=== PATIENT | female | born 1940 | race Two or more races ===

== ENCOUNTER 2020-10-20 09:26 | Inpatient (IN) | payer MEDICARE, OTHER ==
[~2020-10-20] VITALS: Ht 167.6 cm; Wt 56.7 kg
[2020-10-20 10:48] LABS: Urine Amorphous Crystal FEW /hpf (None Seen); Urine Bacteria NONE SEEN /hpf (None Seen); Urine Blood Negative /uL (Negative); Urine Mucus FEW (None Seen); Urine Specific Gravity 1.012 (1.001-1.035); Urine WBC <1 /hpf (0 - 5)
[2020-10-20 11:26] LABS: Basophils # (auto) 0 10 ^3/uL (0-0.2); Basophils % (auto) 0.4 % (0.0-2.0); Eosinophils # (auto) 0 10 ^3/uL (0-0.8); Eosinophils % (auto) 0.8 % (0.0-7.0); Hematocrit 39.4 % (36.0-46.0); Hemoglobin 13.5 g/dL (12.2-16.2); Lymphocytes # (auto) 0.6 10 ^3/uL (0.4-5.4); Lymphocytes % (auto) 12.6 % (10.0-50.0); Mean Corpuscular Hemoglobin 33.1 pg (28.0-32.0); Mean Corpuscular Hgb Conc. 34.3 g/dL (32.0-36.0); Mean Corpuscular Volume 96.6 fL (80.0-100.0); Monocytes # (auto) 0.3 10 ^3/uL (0-1.3); Monocytes % (auto) 7.6 % (0.0-12.0); Neutrophils # (auto) 3.6 10 ^3/uL (1.6-8.6); Neutrophils % (auto) 78.6 % (37.0-80.0); Nucleated Red Blood Cells % 0.1 %; Platelet Count (auto) 137 10^3/uL (140-450); Red Blood Cells 4.08 10^6/uL (4.0-5.20); Red Cell Distribution Width 13.3 % (11.8-14.3); White Blood Cell 4.6 10^3/uL (4.4-10.8)
[2020-10-20 11:42] LABS: Chloride 103 mmol/L (98-107); Sodium 132 mmol/L (136-145)
[2020-10-20 11:50] LABS: Alanine Aminotransferase 20 U/L (13-56); Albumin 3.8 g/dL (3.4-5.0); Alkaline Phosphatase 101 U/L (45-117); Anion Gap 5 (5-15); Aspartate Aminotransferase 21 U/L (15-37); BUN/Creatinine Ratio 27.9; Blood Urea Nitrogen 12 mg/dL (7-18); Calcium 9.3 mg/dL (8.5-10.1); Carbon Dioxide 24 mmol/L (21-32); GFR African American 183 mL/min; GFR Non-African American 151 mL/min; Glucose 104 mg/dL (74-106); Total Protein 7.7 g/dL (6.4-8.2)
[2020-10-20 11:54] LABS: INR 1.24 (0.9-1.15); Partial Thromboplastin Time 33.4 sec (23.0-31.2)
[2020-10-20] MEDS ORDERED: NITROGLYCERIN 0.4 MG SL TAB SL PRN (14:30)
[2020-10-20] MEDS ORDERED: MORPHINE SULF INJ 2 MG/ML SYRINGE 1ML IV PRN ×2 (14:30)
[2020-10-20] MEDS ORDERED: ONDANSETRON HCL 4 MG/2 ML VIAL IV PRN (14:30)
[2020-10-20] MEDS ORDERED: ACETAMINOPHEN 500 MG TAB PO PRN (14:30)
[2020-10-20] MEDS ORDERED: HYDROcodone-ACET 5/325MG TAB PO PRN (14:30)
[2020-10-20] MEDS ORDERED: hydrALAZINE HCL 20 MG/ML VL IV PRN (15:00)
[2020-10-20] MEDS ORDERED: LORazepam 2MG/ML-1ML VIAL IV PRN (16:30)
[2020-10-20 19:15] LABS: Cholesterol 211 mg/dL (< 200); Triglycerides 74 mg/dL (< 150)
[2020-10-20 19:18] LABS: HDL Cholesterol 80 mg/dL (40-59); LDL Cholesterol 110 mg/dL (< 100)
[2020-10-20] MEDS: APIXABAN 5 MG TAB PO SCH (22:34)
[2020-10-20] MEDS: ATORVASTATIN 20 MG TAB PO SCH (22:35)
[2020-10-20] MEDS ORDERED: GABAPENTIN 100 MG CAP PO ONE (23:30)
[2020-10-21] VITALS (7 sets, daily range): BP systolic 115–150; BP diastolic 61–77
[2020-10-21] MEDS ORDERED: AMLO-489 PO (04:53)
[2020-10-21] MEDS ORDERED: GABA100C PO (04:53)
[2020-10-21] MEDS ORDERED: CYCL0.05 EACHEYE (04:53)
[2020-10-21] MEDS ORDERED: FLUO0.1S2 OP (04:53)
[2020-10-21] MEDS ORDERED: APIX5TAB PO (04:53)
[2020-10-21] MEDS ORDERED: BRIM0.159 OP (04:53)
[2020-10-21] MEDS ORDERED: LISI-646 PO (04:53)
[2020-10-21] MEDS ORDERED: TIMO0.5S28 EACHEYE (04:53)
[2020-10-21] MEDS: amLODIPine BESYLATE 5 MG TAB PO SCH (09:14)
[2020-10-21] MEDS: FAMOTIDINE 20 MG TAB PO SCH (09:15)
[2020-10-21] MEDS: APIXABAN 5 MG TAB PO SCH ×2 (09:15→21:03)
[2020-10-21] MEDS: ATORVASTATIN 20 MG TAB PO SCH (21:02)
[2020-10-21] MEDS ORDERED: GABAPENTIN 100 MG CAP PO SCH (22:00)
[2020-10-21] MEDS: SODIUM CHLORIDE 0.9% 1,000 ML IV SCH (22:06)
[2020-10-22] MEDS: SODIUM CHLORIDE 0.9% 1,000 ML IV SCH ×2 (05:08→13:15)
[2020-10-22 05:16] VITALS: BP 162/75
[2020-10-22 06:38] VITALS: BP 135/53
[2020-10-22 08:30] VITALS: BP 138/59
[2020-10-22] MEDS: APIXABAN 5 MG TAB PO SCH (09:00)
[2020-10-22] MEDS: FAMOTIDINE 20 MG TAB PO SCH (09:00)
[2020-10-22] MEDS: amLODIPine BESYLATE 5 MG TAB PO SCH (09:01)
[2020-10-22] MEDS ORDERED: AZITHROMYCIN 250 MG TAB PO SCH (10:00)
[2020-10-22] MEDS ORDERED: IOPAMIDOL 76 % (ISOVUE-370) 100ML BTL IV ONE (10:24)
[2020-10-22 12:30] VITALS: BP 128/65
[2020-10-22 16:47] VITALS: BP 123/66
== END 2020-10-22 17:30 | disposition home or self-care (01) | DRG 149 ==
LOC: ER 09:26 → TELE 14:19 → TELE-EAST 10-21 02:56
PROVIDERS: ADMIT Nurse Practitioner Acute Care; ATTEND Internal Medicine
DX: R42 Dizziness and giddiness (principal); U07.1 COVID-19; E87.1 Hypo-osmolality and hyponatremia; R55 Syncope and collapse; I73.9 Peripheral vascular disease, unspecified; I48.0 Paroxysmal atrial fibrillation; H57.02 Anisocoria; F41.9 Anxiety disorder, unspecified; G62.9 Polyneuropathy, unspecified; I11.0 Hypertensive heart disease with heart failure; I50.9 Heart failure, unspecified; Z86.73 Personal history of transient ischemic attack (TIA), and cerebral infarction without residual deficits; Z90.710 Acquired absence of both cervix and uterus
CPT/HCPCS: 36415; 70450; 70498; 71045; 71250; 80053; 80061; 81001; 84484; 85025; 85610; 85730; 87426; 93005; 93306; 93886; 97163; G0378

== ENCOUNTER 2024-06-26 08:26 | Inpatient (IN) | payer MEDICARE, OTHER ==
[~2024-06-26] VITALS: Ht 165.1 cm; Wt 61.5 kg
[~2024-06-26 08:26] MED LIST: AMLO1TAB22 PO; APIX5TAB PO; BRIM0.159 OP; CYCL0.05 EACHEYE; FLUO0.1S2 OP; GABA100C PO; LISI20TA56 PO; TIMO0.5S28 EACHEYE
[2024-06-26 08:57] LABS: Basophils # (auto) 0 10 ^3/uL (0-0.2); Basophils % (auto) 0.5 % (0.0-2.0); Eosinophils # (auto) 0 10 ^3/uL (0-0.8); Eosinophils % (auto) 0.1 % (0.0-7.0); Hematocrit 32.9 % (36.0-46.0); Hemoglobin 10.8 g/dL (12.2-16.2); Lymphocytes # (auto) 0.4 10 ^3/uL (0.4-5.4); Lymphocytes % (auto) 6.1 % (10.0-50.0); Mean Corpuscular Hemoglobin 30.2 pg (28.0-32.0); Mean Corpuscular Hgb Conc. 32.9 g/dL (32.0-36.0); Mean Corpuscular Volume 91.8 fL (80.0-100.0); Monocytes # (auto) 0.9 10 ^3/uL (0-1.3); Monocytes % (auto) 14.4 % (0.0-12.0); Neutrophils # (auto) 5.1 10 ^3/uL (1.6-8.6); Neutrophils % (auto) 78.9 % (37.0-80.0); Platelet Count (auto) 302 10^3/uL (140-450); Red Blood Cells 3.59 10^6/uL (4.0-5.20); Red Cell Distribution Width 13.2 % (11.8-14.3); White Blood Cell 6.4 10^3/uL (4.4-10.8)
--- NOTE | 2024-06-26 08:57 | ED.PDOC ---
Back pain HPI HPI Comments 83Y F with PMHx HTN, HLD, TIA, and hysterectomy presents to ED for chief complaint bilateral hip pain and bilateral shoulder pain. Pt is currently being f/u by Dr. Berumen who told her she is not a candidate for surgery. Pt states pain is worsening and she can barely walk. Pt is currently taking Gabapentin for neuropathy. Pt denies h/o DM. No known allergies. Chief Complaint: Lower Extremity Time Seen by MD: 08:47 Reviewed Notes: Medications, Allergies Allergies: Coded Allergies: NO KNOWN ALLERGIES (Unverified , 10/20/20) Home Meds Reported Medications Brimonidine Tartrate (Brimonidine Tartrate) 0.15 % Katina, 1 DROP OP BID, DROP 10/21/20 Fluorometholone (Fml Liquifilm) 0.1 % Marilin, 0.1 % OP PRN, ML 10/21/20 Timolol Maleate (Timolol Maleate Ophthalmi) 0.5 % Katina, 1 DROP EACHEYE BID, #5 ML 5 Refills 10/21/20 Cyclosporine (Ophth) (Restasis) 0.05 % Emu, 1 DROP EACHEYE BID, #60 VIAL 3 Refills 10/21/20 Gabapentin (Neurontin) 100 Mg Cap, 200 MG PO DAILY, CAP 10/21/20 Apixaban Base (ELIQUIS) 5 Mg Tab, 5 MG PO BID, TAB 10/21/20 Amlodipine Besylate (Amlodipine Besylate) 5 Mg Tab, 5 MG PO DAILY for 30 Days, MG 10/21/20 Lisinopril (Lisinopril) 20 Mg Tab, 20 MG PO BID for 30 Days, MG 10/21/20 Information Source: Patient Mode of Arrival: Wheelchair Timing: Weeks Duration: Since onset Severity: Mild Quality: Sharp Onset: Other Circumstance: Other History of: Arthritis Modifying Factors: Nothing Associated signs and symptoms: None Past Medical History PAST MEDICAL HISTORY: HTN, TIA Surgical History: Hysterectomy SOCIAL MEDIA DESIGNER History: Unobtainable Family History Family History: Unobtainable Social History Smoker: Non-Smoker Alcohol: Denies ETOH Use Drugs: Denies Drug Use Lives In: Home Constitutional: denies: chills, diaphoresis, fatigue, fever, malaise, sweats, weakness, others EENTM: denies: blurred vision, double vision, ear bleeding, ear discharge, ear drainage, ear pain, ear ringing, eye pain, eye redness, hearing loss, mouth pain, mouth swelling, nasal discharge, nose bleeding, nose congestion, nose pain, photophobia, tearing, throat pain, throat swelling, voice changes, others Respiratory: denies: cough, hemoptysis, orthopnea, SOB at rest, shortness of breath, SOB with excertion, stridor, wheezing, others Cardiovascular: denies: chest pain, dizzy spells, diaphoresis, Dyspnea on exertion, edema, irregular heart beat, left arm pain, lightheadedness, palpitations, PND, syncope, others Gastrointestinal: denies: abdomen distended, abdominal pain, blood streaked bowels, constipated, diarrhea, dysphagia, difficulty swallowing, hematemesis, melena, nausea, poor appetite, poor fluid intake, rectal bleeding, rectal pain, vomiting, others Genitourinary: denies: abnormal vagina bleeding, burning, dyspareunia, dysuria, flank pain, frequency, hematuria, incontinence, pain, , vagina discharge, urgency, others Neurological: denies: dizziness, fainting, headache, left sided numbness, left sided weakness, numbness, paresthesia, pre-existing deficit, right sided numbness, right sided weakness, seizure, speech problems, tingling, tremors, weakness, others Musculoskeletal: reports: joint pain, muscle pain; denies: back pain, gout, joint swelling, muscle stiffness, neck pain, others Integumetry: denies: bruises, change in color, change in hair/nails, dryness, laceration, lesions, lumps, rash, wounds, others Allergic/Immunocompromised: denies: Difficulty Healing, Frequent Infections, Hives, Itching, others Hematologic/Lymphatic: denies: anemia, blood clots, easy bleeding, easy bruising, swollen glands, others Endocrine: denies: excessive hunger, excessive sweating, excessive thirst, excessive urination, flushing, intolerance to cold, intolerance to heat, unexplained weight gain, unexplained weight loss, others Psychiatric: denies: anxiety, bipolar disorder, depression, hopeless, panic disorder, schizophrenia, sleepless, suicidal, others All Other Systems: Reviewed and Negative Physical Exam General Appearance: Moderate Distress, Normal HEENT: Normal ENT Inspection, Pharynx Normal, TMs Normal Neck: Full Range of Motion, Non-Tender, Normal, Normal Inspection Respiratory: Chest Non-Tender, Lungs Clear, No Accessory Muscle Use, No Respiratory Distress, Normal Breath Sounds Cardiovascular: No Edema, No JVD, No Murmur, No Gallop, Normal Peripheral Pu lses, Regular Rate/Rhythm Breast Exam: Deferred Gastrointestinal: No Organomegaly, Non Tender, No Pulsatile Mass, Normal Bowel Sounds, Soft Genitalia: Deferred Pelvic: Deferred Rectal: Deferred Extremities: Decreased range of motion (Bilateral upper lower extremity), No calf tenderness, Normal capillary refill, Non-tender, No pedal edema Musculoskeletal : Apperance: Normal Neurologic: Alert, assistant education director II-XII nml as Tested, No Motor Deficits, Normal Affect, Normal Mood, No Sensory Deficits Cerebellar Function: NOT DONE Reflexes: NOT DONE Skin: Dry, Normal Color, Warm Peripheral Pulses: 3+ Radial (R), 3+ Radial (L) Lymphatic: No Adenopathy Was a procedure done? Was a procedure done?: No Back Pain Differential Dx Differential Diagnosis: Musculoskeletal Pain, Strain X-Ray, Labs, Meds, VS Vital Signs Date Time Temp Pulse Resp B/P (MAP) Pulse Ox O2 Delivery O2 Flow Rate FiO2 06/26/24 10:06 69 19 134/53 (80) 98 06/26/24 10:05 69 19 134/53 06/26/24 09:38 78 18 148/58 06/26/24 09:36 73 16 99 Room Air* 0 21 06/26/24 09:33 98.9 78 18 148/58 (88) 99 98.9 06/26/24 09:33 78 18 99 Room Air 06/26/24 08:38 98.1 76 18 158/90 (112) 98 Lab Test 06/26/24 08:46 06/26/24 08:37 Range/Units White Blood Count 6.4 4.4-10.8 10^3/uL Red Blood Count 3.59 L 4.0-5.20 10^6/uL Hemoglobin 10.8 L 12.2-16.2 g/dL Hematocrit 32.9 L 36.0-46.0 % Mean Corpuscular Volume 91.8 80.0-100.0 fL Mean Corpuscular Hemoglobin 30.2 28.0-32.0 pg Mean Corpuscular Hemoglobin Concent 32.9 32.0-36.0 g/dL Red Cell Distribution Width 13.2 11.8-14.3 % Platelet Count 302 140-450 10^3/uL Mean Platelet Volume 6.4 L 6.9-10.8 fL Neutrophils (%) (Auto) 78.9 37.0-80.0 % Lymphocytes (%) (Auto) 6.1 L 10.0-50.0 % Monocytes (%) (Auto) 14.4 H 0.0-12.0 % Eosinophils (%) (Auto) 0.1 0.0-7.0 % Basophils (%) (Auto) 0.5 0.0-2.0 % Neutrophils # (Auto) 5.1 1.6-8.6 10 ^3/uL Lymphocytes # (Auto) 0.4 0.4-5.4 10 ^3/uL Monocytes # (Auto) 0.9 0-1.3 10 ^3/uL Eosinophils # (Auto) 0 0-0.8 10 ^3/uL Basophils # (Auto) 0 0-0.2 10 ^3/uL Nucleated Red Blood Cells 0.0 % Sodium Level 130 L 136-145 mmol/L Potassium Level 4.5 3.5-5.1 mmol/L Chloride Level 100 98-107 mmol/L Carbon Dioxide Level 26 20-31 mmol/L Anion Gap 4 L 5-15 Blood Urea Nitrogen 14 9-23 mg/dL Creatinine 0.59 0.550-1.02 mg/dL Glomerular Filtration Rate Calc 90 >90 mL/min BUN/Creatinine Ratio 23.7 H 10.0-20.0 Serum Glucose 122 H 74-106 mg/dL Calcium Level 9.2 8.7-10.4 mg/dL Urine Color Light-yellow Yellow Urine Clarity Turbid H Clear Urine pH 7.0 5.0-9.0 Urine Specific [place] 1.012 1.001-1.035 Urine Protein Negative Negative Urine Ketones Negative Negative Urine Blood Negative Negative /uL Urine Nitrite Negative Negative Urine Bilirubin Negative Negative Urine Urobilinogen Normal Negative mg/dL Urine Leukocyte Esterase Negative Negative /uL Urine RBC 2 0 - 4 /hpf Urine WBC 1 0 - 5 /hpf Urine Squamous Epithelial Cells Mod <5 /hpf Urine Bacteria None seen None Seen /hpf Urine Glucose Normal Normal mg/dL Current Medications Medications (Trade) Dose Ordered Sig/Melony Route Start Time Stop Time Status Last Admin Morphine Sulfate 4 mg ONCE ONCE IV 06/26/24 09:15 06/26/24 09:16 DC 06/26/24 09:38 Ondansetron HCl (Zofran) 4 mg ONCE ONCE IV 06/26/24 09:15 06/26/24 09:16 DC 06/26/24 09:37 Patient alert. Came in because she has been unable to ambulate. She does have a history of possible inflammation of the hips. Vitals stable. Osteoarthritis involving the hips shoulder. 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 She uses a cane for assistance. WBC within normal limits. Blood pressure elevated. Was given clonidine. Possibly will need MRI of the joints. Reviewed her previous visit. Explained to the patient. Continue cardiac monitoring. Time of 1ST Reevaluation: 09:17 Reevaluation 1ST: Unchanged Patient Education/Counseling: Diagnosis, Treatment Family Education/Counseling: No Family Present Departure 1 Departure Time of Disposition: 09:12 Impression: Primary Impression: Hip osteoarthritis Qualified Codes: M16.0 - Bilateral primary osteoarthritis of hip Additional Impressions: Hypertensive urgency Fibromyalgia Disposition: ADMITTED INPATIENT Admit to: Med Surg Condition: Guarded Critical Care Note Critical Care Time?: Yes (45 min-critical care time only) Stability Stability form required: No Heart Score Heart Score: Heart Score Response (Comments) Value History Slightly Suspicious 0 EKG Normal 0 Age >65 2 Risk Factors 1 or 2 risk factors 1 Troponin N/A 0 Total 3 I personally scribed for ALEXIS ELLIOTT MD ([email or web address]) on 06/26/24 at 08:57. Electronically submitted by Amelia Boswell ([email or web address]). ALEXIS ELLIOTT MD Jun 26, 2024 08:57
[2024-06-26 08:59] LABS: Urine Bacteria None Seen /hpf (None Seen)
[2024-06-26 09:09] LABS: Urine Blood Negative /uL (Negative); Urine Clarity Turbid (Clear); Urine Color Light-Yellow (Yellow); Urine Protein, UAD Negative (Negative); Urine Specific Gravity 1.012 (1.001-1.035); Urine Urobilinogen Normal (Negative); Urine WBC 1 /hpf (0 - 5)
[2024-06-26 09:26] LABS: Chloride 100 mmol/L (98-107); Potassium 4.5 mmol/L (3.5-5.1); Sodium 130 mmol/L (136-145)
[2024-06-26 09:27] LABS: Anion Gap 4 (5-15); Calcium 9.2 mg/dL (8.7-10.4); Carbon Dioxide 26 mmol/L (20-31)
[2024-06-26 09:32] LABS: BUN/Creatinine Ratio 23.7 (10.0-20.0); Blood Urea Nitrogen 14 mg/dL (9-23); Glucose 122 mg/dL (74-106)
[2024-06-26 09:36] VITALS: PULSE 73; RESP 16; O2SAT 99
[2024-06-26] MEDS: ONDANSETRON HCL 4 MG/2 ML VIAL IV ONE (09:37)
[2024-06-26] MEDS: MORPHINE SULFATE 4 MG/ML SYR/VIAL IV ONE (09:38)
--- NOTE | 2024-06-26 12:42 | DVHHP2 ---
History of Present Illness Reason for Visit: Hypertensive urgency History of Present Illness The patient is a 83-year-old female with past medical history of hyperlipidemia, hypertension, and TIA who presented to [facility] ED with complaint of bilateral hip pain. Patient reports symptoms progressively get worse with localized bilateral hip pain, rating 9/10 numeric scale, getting worse today that prompted this visit. Patient was seen and evaluated in the ED, laboratory data shows WBC 6.4, hemoglobin 10.8, hematocrit 32.9, platelets 302, sodium 130, potassium 4.5, BUN 14, creatinine 0.59, glucose 122, blood pressure 158/90, heart rate 78, temperature 98.9 F, O2 saturation 98% on room air. CT of the right hip revealing moderate degenerative arthrosis of the right hip. Patient was given IV morphine sulfate 4 mg x 1, please see medication orders section in the computer. On my assessment, patient denied chest pain, no headache, no dizziness, no diaphoresis, no shortness of breath, no nausea, no vomiting, no fever, no chills. Patient was admitted for further evaluation and medical management. Past Medical History HTN, TIA, HLD Past Surgical History Hysterectomy Family History Reviewed, noncontributory to the management of this case. Past Social History The patient lives at home, denies smoking, alcohol or illicit drugs abuse. Review of Systems Constitutional: No: Fever, Chills, Sweats, Weakness, Malaise, Other Eyes: No: Pain, Vision change, Conjunctivae inflammation, Eyelid inflammation, Other, Redness ENT: No: Ear pain, Ear discharge, Nose pain, Nose discharge, Nose congestion, Mouth pain, Mouth swelling, Throat pain, Throat swelling, Other Respiratory: No: Cough, Dry, Shortness of breath, SOB with excertion, Wheezing, Hemoptysis, Pleuritic Pain, Sputum, Wheezing, Other Cardiovascular: No: Chest Pain, Palpitations, Orthopnea, Paroxysmal Noc. Dyspnea, Edema, Lt Headedness, Other Gastrointestinal: No: Nausea, Vomiting, Abdominal Pain, Diarrhea, Constipation, Melena, Hematochezia, Other Genitourinary: No Dysuria, No Frequency, No Incontinence, No Hematuria, No Retention, No Other Musculoskeletal: other (joint pain, muscle pain.); No: neck pain, shoulder pain, arm pain, back pain, hand pain, leg pain, foot pain Skin: No: Rash, Lesions, Jaundice, Bruising, Other Neurological: No: Weakness, Numbness, Incoordination, Change in speech, Confusion, Seizures, Other Allergies: Coded Allergies: NO KNOWN ALLERGIES (Unverified , 10/20/20) Medications Current Medications Medications Dose Ordered Sig/Melony Route Start Time Stop Time Status Last Admin Dose Admin Gabapentin 200 mg DAILY PO 06/27/24 10:00 UNV Exam Vital Signs Vital Signs Date Time Temp Pulse Resp B/P (MAP) Pulse Ox O2 Delivery O2 Flow Rate FiO2 06/26/24 10:06 69 19 134/53 (80) 98 06/26/24 09:36 Room Air* 0 21 06/26/24 09:33 98.9 98.9 General Appearance: Alert, Oriented X3, Cooperative, No acute distress HEENT: Atraumatic, PERRLA, EOMI, Mucous membr. moist/pink Respiratory: Clear to auscultation, Normal air movement Cardiovascular: Regular rate, Normal S1, Normal S2, No murmurs Abdominal: Normal bowel sounds, Soft, No tenderness, No hepatospenomegaly, No m asses Extremities: No clubbing, No cyanosis, No edema, Normal pulses, Other (Bilateral hip tenderness) Skin: No rashes, No breakdown, No significant lesion Neuro: Normal speech, Normal tone, Sensation intact, Cranial nerves 3-12 NL, Reflexes 2+, Other (Unsteady gait) Psych/Mental Status: Mental status NL, Mood NL Labs/Xrays Labs Test 06/26/24 08:46 06/26/24 08:37 Range/Units White Blood Count 6.4 4.4-10.8 10^3/uL Red Blood Count 3.59 L 4.0-5.20 10^6/uL Hemoglobin 10.8 L 12.2-16.2 g/dL Hematocrit 32.9 L 36.0-46.0 % Mean Corpuscular Volume 91.8 80.0-100.0 fL Mean Corpuscular Hemoglobin 30.2 28.0-32.0 pg Mean Corpuscular Hemoglobin Concent 32.9 32.0-36.0 g/dL Red Cell Distribution Width 13.2 11.8-14.3 % Platelet Count 302 140-450 10^3/uL Mean Platelet Volume 6.4 L 6.9-10.8 fL Neutrophils (%) (Auto) 78.9 37.0-80.0 % Lymphocytes (%) (Auto) 6.1 L 10.0-50.0 % Monocytes (%) (Auto) 14.4 H 0.0-12.0 % Eosinophils (%) (Auto) 0.1 0.0-7.0 % Basophils (%) (Auto) 0.5 0.0-2.0 % Neutrophils # (Auto) 5.1 1.6-8.6 10 ^3/uL Lymphocytes # (Auto) 0.4 0.4-5.4 10 ^3/uL Monocytes # (Auto) 0.9 0-1.3 10 ^3/uL Eosinophils # (Auto) 0 0-0.8 10 ^3/uL Basophils # (Auto) 0 0-0.2 10 ^3/uL Nucleated Red Blood Cells 0.0 % Sodium Level 130 L 136-145 mmol/L Potassium Level 4.5 3.5-5.1 mmol/L Chloride Level 100 98-107 mmol/L Carbon Dioxide Level 26 20-31 mmol/L Anion Gap 4 L 5-15 Blood Urea Nitrogen 14 9-23 mg/dL Creatinine 0.59 0.550-1.02 mg/dL Glomerular Filtration Rate Calc 90 >90 mL/min BUN/Creatinine Ratio 23.7 H 10.0-20.0 Serum Glucose 122 H 74-106 mg/dL Calcium Level 9.2 8.7-10.4 mg/dL Urine Color Light-yellow Yellow Urine Clarity Turbid H Clear Urine pH 7.0 5.0-9.0 Urine Specific [place] 1.012 1.001-1.035 Urine Protein Negative Negative Urine Ketones Negative Negative Urine Blood Negative Negative /uL Urine Nitrite Negative Negative Urine Bilirubin Negative Negative Urine Urobilinogen Normal Negative mg/dL Urine Leukocyte Esterase Negative Negative /uL Urine RBC 2 0 - 4 /hpf Urine WBC 1 0 - 5 /hpf Urine Squamous Epithelial Cells Mod <5 /hpf Urine Bacteria None seen None Seen /hpf Urine Glucose Normal Normal mg/dL PATIENT: NIKI MORTON ACCT: [id number] UNIT: [id number] : 1940 LOC: ER ROOM / BED: / AGE / SEX: 83 / F ADM STATUS: REG ER SERVICE [id number] ORDERING PHYSICIAN: PEDRO LERNER DNP PROCEDURE(s): LHPCT - CT L HIP WITH OUT CONTRAST REASON: Severe hip pain ORDER NUMBER(s): [id number], ACCESSION NUMBER(s): [id number] CT left hip INDICATION: Severe hip pain COMPARISON: None TECHNIQUE: CT of the left hip left was performed without contrast. Images reformatted in sagittal coronal planes. Radiation Dose Information: CT Dose: CTDI volume is 11.3 mGy. Dose-length product is 309 mGy*cm FINDINGS: articular surfaces are smooth and joint spaces preserved. Femoral heads vertical morphology No free intra-articular bony fragments. No lytic or blastic lesions of bone. IMPRESSION: 1. No acute bony pathology of the left hip joint ORDERING PHYSICIAN: PEDRO LERNER DNP PROCEDURE(s): RHPCT - CT R HIP WITH OUT CONTRAST REASON: Severe hip pain ORDER NUMBER(s): [id number], ACCESSION NUMBER(s): [id number] INDICATION: Severe hip pain COMPARISON: HEAD WITHOUT CONTRAST on DOS: 10/20/20 TECHNIQUE: CT of the right hip was performed without contrast. Volume transverse images were obtained and reconstructed in multiple planes using bone and soft tissue algorithms. Radiation Dose Information: CT Dose: CTDI volume is 11 mGy. Dose-length product is 619 mGy*cm FINDINGS: The alignment is normal. No evidence of traumatic dislocation. Moderate degenerative arthrosis manifesting as joint space narrowing, subchondral sclerosis, and marginal osteophyte formation. There is no fracture, dislocation or aggressive osseous lesion. There is no joint effusion. The soft tissues are normal. IMPRESSION: 1. No acute traumatic fracture or dislocation. 2. Moderate degenerative arthrosis of the right hip. Assessment/Plan Assessment/Plan Hyponatremia Bilateral hip pain Hypertension Fibromyalgia Degenerative joint disease (DJD) of hip Plan 1. Admit to telemetry unit 2. Breathing treatment 3. Pain control management 4. Management of fluids and electrolytes 5. Consultation for hospitalist 6. Diagnostic tests hip CT 7. DVT prophylaxis-on SCDs 8. Repeat labs CBC, CMP in a.m. 9. Continue with current medical management 10. Treatment plan discussed with patient and RN. Patient verbalized understanding. Plan discussed with: Patient, Other (RN) My Orders Orders - PEDRO LERNER DNP Procedure Category Date Status Time Ct L Hip With Out CT 06/26/24 Verified Contrast 12:34 Ct R Hip With Out CT 06/26/24 Verified Contrast 12:34 Gabapentin Capsule PHA 06/27/24 Verified (Neurontin Capsule) 10:00 Lisinopril Tablet PHA 06/27/24 Verified (Zestril Tablet) 10:00 Clonidine Hcl Tablet PHA 06/26/24 Verified (Catapres Tablet) 12:45 Apixaban (Eliquis) PHA 06/26/24 Verified 22:00 Admit ADMIT 06/26/24 Verified 12:34 Allergies [facility] 06/26/24 Verified 12:34 Code Status CODE 06/26/24 Verified 12:34 0.9% Ns 1000 Ml PHA 06/26/24 Verified 12:45 Oxygen Per Hour RT 06/26/24 Verified 12:34 Hydrocodone-Acet PHA 06/26/24 Verified 5/325mg Tab ([place] 12:45 Ondansetron Hcl PHA 06/26/24 Verified (Zofran) 12:45 Docusate Sodium PHA 06/26/24 Verified Capsule (Colace 12:45 Fall Risk Precautions [facility] 06/26/[address] 12:34 Complete Blood Count LAB 06/27/24 Verified 04:00 Comprehensive LAB 06/27/24 Verified Metabolic Panel 04:00 Cardiac DIET 06/26/24 Verified Diet-2gna,Lofat,Lochol Lunch Condition: Serious [facility] 06/26/24 Verified 12:34 Acetaminophen Tablet PHA 06/26/24 Verified (Tylenol Tablet) 12:45 Morphine Sulfate PHA 06/26/24 Verified Injection 12:45 Sequential [facility] 06/26/24 Verified Compression Device Nitroglycerin [facility] 06/26/24 Verified Sublingual (Ntrostat 12:45 Morphine Sulfate [facility] 06/26/24 Verified Injection 12:45 Notify Of Changes [facility] 06/26/24 Verified From Base 12:34 Land Use Planner For [facility] 06/26/24 Verified 24 Hours 12:34 Emergency Dysrhythmia [facility] 06/26/24 Verified Protocol 12:34 Rhythm Strips Once [facility] 06/26/24 Verified Every Shift 12:34 Oxygen By Nasal RT 06/26/24 Verified Cannula 12:34 Problem List: (1) Bilateral hip pain (2) Hyponatremia (3) Hypertension (4) Fibromyalgia (5) Degenerative joint disease (DJD) of hip Date of Service: Jun 26, 2024 Billing Provider: PEDRO LERNER DNP Common Visit Codes: [id number] INP/OBS CARE (HIGH) PEDRO LERNER DNP Jun 26, 2024 12:42
[2024-06-26] MEDS ORDERED: MORPHINE SULFATE INJ 2 MG/ml SYRG IV PRN ×2 (12:45)
[2024-06-26] MEDS ORDERED: ACETAMINOPHEN 325 MG TAB PO PRN (12:45)
[2024-06-26] MEDS ORDERED: DOCUSATE SOD 100 MG CAP PO PRN (12:45)
[2024-06-26] MEDS ORDERED: NITROGLYCERIN 0.4 MG SL TAB SL PRN (12:45)
[2024-06-26] MEDS ORDERED: ONDANSETRON HCL 4 MG/2 ML VIAL IV PRN (12:45)
[2024-06-26] MEDS ORDERED: cloNIDine HCL 0.1 MG TAB PO PRN (12:45)
--- NOTE | 2024-06-26 13:49 | DVH ---
INDICATION: Severe hip pain COMPARISON: HEAD WITHOUT CONTRAST on DOS: 10/20/20 TECHNIQUE: CT of the right hip was performed without contrast. Volume transverse images were obtained and reconstructed in multiple planes using bone and soft tissue algorithms. Radiation Dose Information: CT Dose: CTDI volume is 11 mGy. Dose-length product is 619 mGy*cm FINDINGS: The alignment is normal. No evidence of traumatic dislocation. Moderate degenerative arthrosis manifesting as joint space narrowing, subchondral sclerosis, and karol inal osteophyte formation. There is no fracture, dislocation or aggressive osseous lesion. There is no joint effusion. The soft tissues are normal. IMPRESSION: 1. No acute traumatic fracture or dislocation. 2. Moderate degenerative arthrosis of the right hip. 3. All CT scans at this medical facility are performed using dose modulation techniques as appropriat e to a performed exam including the following: Automated exposure control was utilized; adjustment of the MA and/or KV according to patient size; and use of iterative reconstruction technique.
--- NOTE | 2024-06-26 13:50 | DVH ---
CT left hip INDICATION: Severe hip pain COMPARISON: None TECHNIQUE: CT of the left hip left was performed without contrast. Images reformatted in sagittal c oronal planes. Radiation Dose Information: CT Dose: CTDI volume is 11.3 mGy. Dose-length product is 309 mGy*cm FINDINGS: articular surfaces are smooth and joint spaces preserved. Femoral heads vertical morphology No free intra-articular bony fragments. No lytic or blastic lesions of bone. IMPRESSION: 1. No acute bony pathology of the left hip joint 2. All CT scans at this medical facility are performed using dose modulation techniques as appropriat e to a performed exam including the following: Automated exposure control was utilized; adjustment of the MA and/or KV according to patient size; and use of iterative reconstruction technique.
[2024-06-26] MEDS: SODIUM CHLORIDE 0.9% 1,000 ML IV SCH (15:08)
[2024-06-26] MEDS ORDERED: GABA-1250 PO (16:29)
[2024-06-26] MEDS: HYDROcodone-ACET 5/325MG TAB PO PRN (18:56)
[2024-06-26 20:00] VITALS: BP 138/68; PULSE 61; RESP 19; TEMP 98; O2SAT 98
[2024-06-26 21:24] VITALS: BP 138/68; PULSE 61; RESP 19; TEMP 98; O2SAT 98
[2024-06-26] MEDS: APIXABAN 5 MG TAB PO SCH (22:00)
[2024-06-26 23:15] VITALS: PULSE 61; RESP 19; O2SAT 98
[2024-06-26] MEDS ORDERED: LATA0.008 EACHEYE (23:58)
[2024-06-27 05:00] VITALS: BP 147/53; PULSE 69; RESP 19; TEMP 98.1; O2SAT 98
[2024-06-27 06:36] LABS: Basophils # (auto) 0 10 ^3/uL (0-0.2); Basophils % (auto) 0.3 % (0.0-2.0); Eosinophils # (auto) 0 10 ^3/uL (0-0.8); Eosinophils % (auto) 0.9 % (0.0-7.0); Hematocrit 30.6 % (36.0-46.0); Lymphocytes # (auto) 0.4 10 ^3/uL (0.4-5.4); Lymphocytes % (auto) 11.3 % (10.0-50.0); Mean Corpuscular Hemoglobin 30.1 pg (28.0-32.0); Mean Corpuscular Hgb Conc. 32.7 g/dL (32.0-36.0); Mean Corpuscular Volume 91.9 fL (80.0-100.0); Monocytes # (auto) 0.7 10 ^3/uL (0-1.3); Monocytes % (auto) 17.4 % (0.0-12.0); Neutrophils # (auto) 2.7 10 ^3/uL (1.6-8.6); Neutrophils % (auto) 70.1 % (37.0-80.0); Platelet Count (auto) 249 10^3/uL (140-450); Red Blood Cells 3.33 10^6/uL (4.0-5.20); Red Cell Distribution Width 13.5 % (11.8-14.3); White Blood Cell 3.9 10^3/uL (4.4-10.8)
[2024-06-27 06:48] LABS: Alanine Aminotransferase 21 U/L (7-40); Alkaline Phosphatase 61 U/L (46-116); Anion Gap 5 (5-15); Aspartate Aminotransferase 15 U/L (13-40); BUN/Creatinine Ratio 21.7 (10.0-20.0); Blood Urea Nitrogen 10 mg/dL (9-23); Calcium 8.9 mg/dL (8.7-10.4); Carbon Dioxide 25 mmol/L (20-31); Chloride 105 mmol/L (98-107); Glucose 101 mg/dL (74-106); Potassium 4.2 mmol/L (3.5-5.1)
[2024-06-27 06:49] LABS: Albumin 3.5 g/dL (3.2-4.8); Bilirubin, Total 0.7 mg/dL (0.2-1.0); Total Protein 5.9 g/dL (5.7-8.2)
[2024-06-27 06:54] LABS: Sodium 135 mmol/L (136-145)
[2024-06-27 08:00] VITALS: PULSE 86
[2024-06-27 09:00] VITALS: BP 127/46; PULSE 76; RESP 18; TEMP 98.2; O2SAT 96
[2024-06-27] MEDS: LISINOPRIL 20 MG TAB PO SCH (10:24)
[2024-06-27] MEDS: GABAPENTIN 100 MG CAP PO SCH (10:29)
--- NOTE | 2024-06-27 11:52 | DVHPN2 ---
Reviewed: Care Plan, H&P, Labs, Medications, Previous Orders, Radiology Changes from previous H/P or p: No Changes Eyes: No Pain, No Vision change, No Conjunctivae inflammation, No Eyelid inflammation, No Other, No Redness ENT: No Ear pain, No Ear discharge, No Nose pain, No Nose discharge, No Nose congestion, No Mouth pain, No Mouth swelling, No Throat pain, No Throat swelling, No Other Cardiovascular: No Chest Pain, No Palpitations, No Orthopnea, No Paroxysmal Noc. Dyspnea, No Edema, No Lt Headedness, No Other Respiratory: No Cough, No Dry, No Shortness of breath, No SOB with excertion, No Wheezing, No Hemoptysis, No Pleuritic Pain, No Sputum, No Other Gastrointestinal: No Nausea, No Vomiting, No Abdominal Pain, No Diarrhea, No Constipation, No Melena, No Hematochezia, No Other Genitourinary: No Dysuria, No Frequency, No Incontinence, No Hematuria, No Retention, No Other Musculoskeletal: other (joint pain, muscle pain.); No neck pain, No shoulder pain, No arm pain, No back pain, No hand pain, No leg pain, No foot pain Skin: No Rash, No Lesions, No Jaundice, No Bruising, No Other Objective Vitals Vital Signs Date Time Temp Pulse Resp B/P (MAP) Pulse Ox O2 Delivery O2 Flow Rate FiO2 06/27/24 10:24 127/46 06/27/24 09:00 98.2 76 18 96 98.2 06/27/24 08:00 Room Air* 0 21 Intake/Output Intake and Output 06/27/24 06:59 Intake Total 180 ml Balance 180 ml Intake Oral 180 ml # Voids 3 Medications Current Medications Medications Dose Ordered Sig/Melony Route Start Time Stop Time Status Last Admin Dose Admin Gabapentin 200 mg DAILY PO 06/27/24 10:00 06/27/24 10:29 200 MG Lisinopril 20 mg DAILY PO 06/27/24 10:00 06/27/24 10:24 20 MG Clonidine HCl 0.1 mg Q4HP PRN PO 06/26/24 12:45 Apixaban 5 mg BID PO 06/26/24 22:00 06/27/24 10:22 5 MG Sodium Chloride 1,000 ml @ 60 mls/hr [id number] IV 06/26/24 12:45 06/27/24 05:25 60 MLS/HR Acetaminophen/ Hydrocodone Bitart 1 tab Q4HP PRN PO 06/26/24 12:45 06/26/24 18:56 1 TAB Ondansetron HCl 4 mg Q4HP PRN IV 06/26/24 12:45 Docusate Sodium 100 mg BIDPRN PRN PO 06/26/24 12:45 Acetaminophen 650 mg Q6HP PRN PO 06/26/24 12:45 Morphine Sulfate 2 mg Q4HPRN PRN IV 06/26/24 12:45 Nitroglycerin 0.4 mg Q5MINP PRN SL 06/26/24 12:45 Morphine Sulfate 2 mg Q30M PRN IV 06/26/24 12:45 Laboratory Results Laboratory Tests 06/27/24 05:24 Chemistry Test 06/27/24 05:24 Albumin 3.5 g/dL (3.2-4.8) Calcium Level 8.9 mg/dL (8.7-10.4) Total Protein 5.9 g/dL (5.7-8.2) LFT Test 06/27/24 05:24 Alanine Aminotransferase (ALT) 21 U/L (7-40) Alkaline Phosphatase 61 U/L (46-116) Aspartate Amino Transferase (AST) 15 U/L (13-40) Total Bilirubin 0.7 mg/dL (0.2-1.0) Urinalysis Test 06/26/24 08:37 Urine Color Light-yellow (Yellow) Urine Clarity Turbid (Clear) H Urine pH 7.0 (5.0-9.0) Urine Specific [place] 1.012 (1.001-1.035) Urine Protein Negative (Negative) Urine Ketones Negative (Negative) Urine Blood Negative /uL (Negative) Urine Nitrite Negative (Negative) Urine Bilirubin Negative (Negative) Urine Urobilinogen Normal mg/dL (Negative) Urine Leukocyte Esterase Negative /uL (Negative) Urine RBC 2 /hpf (0 - 4) Urine WBC 1 /hpf (0 - 5) Urine Squamous Epithelial Cells Mod /hpf (<5) Urine Bacteria None seen /hpf (None Seen) Urine Glucose Normal mg/dL (Normal) Labs and/or images reviewed: Labs reviewed by me, Image(s) reviewed by me Assessment/Plan Assessment/Plan Bilateral hip pain, CT left hip negative CT right hip negative Hypertension Hypercholesterolemia History of TIA Patient wants to go home Plan discussed with: Patient Date of Service: Jun 27, 2024 Billing Provider: JUNG WARNER MD Common Visit Codes: [id number] INP/OBS CARE(HIGH) JUNG WARNER MD Jun 27, 2024 11:52
--- NOTE | 2024-06-27 11:57 | DVHDS2 ---
Discharge Summary Date of Admission Jun 26, 2024 at 12:34 Date of Discharge: Jun 27, 2024 Admitting Diagnosis Bilateral hip Wounds: None Labs/Diagnostic Data: Laboratory Results Test 06/27/24 05:24 06/26/24 08:37 White Blood Count 3.9 10^3/uL (4.4-10.8) Red Blood Count 3.33 10^6/uL (4.0-5.20) Hemoglobin 10.0 g/dL (12.2-16.2) Hematocrit 30.6 % (36.0-46.0) Mean Corpuscular Volume 91.9 fL (80.0-100.0) Mean Corpuscular Hemoglobin 30.1 pg (28.0-32.0) Mean Corpuscular Hemoglobin Concent 32.7 g/dL (32.0-36.0) Red Cell Distribution Width 13.5 % (11.8-14.3) Platelet Count 249 10^3/uL (140-450) Mean Platelet Volume 6.5 fL (6.9-10.8) Neutrophils (%) (Auto) 70.1 % (37.0-80.0) Lymphocytes (%) (Auto) 11.3 % (10.0-50.0) Monocytes (%) (Auto) 17.4 % (0.0-12.0) Eosinophils (%) (Auto) 0.9 % (0.0-7.0) Basophils (%) (Auto) 0.3 % (0.0-2.0) Neutrophils # (Auto) 2.7 10 ^3/uL (1.6-8.6) Lymphocytes # (Auto) 0.4 10 ^3/uL (0.4-5.4) Monocytes # (Auto) 0.7 10 ^3/uL (0-1.3) Eosinophils # (Auto) 0 10 ^3/uL (0-0.8) Basophils # (Auto) 0 10 ^3/uL (0-0.2) Nucleated Red Blood Cells 0.0 % Sodium Level 135 mmol/L (136-145) Potassium Level 4.2 mmol/L (3.5-5.1) Chloride Level 105 mmol/L (98-107) Carbon Dioxide Level 25 mmol/L (20-31) Anion Gap 5 (5-15) Blood Urea Nitrogen 10 mg/dL (9-23) Creatinine 0.46 mg/dL (0.550-1.02) Glomerular Filtration Rate Calc 96 mL/min (>90) BUN/Creatinine Ratio 21.7 (10.0-20.0) Serum Glucose 101 mg/dL (74-106) Calcium Level 8.9 mg/dL (8.7-10.4) Total Bilirubin 0.7 mg/dL (0.2-1.0) Aspartate Amino Transferase (AST) 15 U/L (13-40) Alanine Aminotransferase (ALT) 21 U/L (7-40) Alkaline Phosphatase 61 U/L (46-116) Total Protein 5.9 g/dL (5.7-8.2) Albumin 3.5 g/dL (3.2-4.8) Urine Color Light-yellow (Yellow) Urine Clarity Turbid (Clear) Urine pH 7.0 (5.0-9.0) Urine Specific [place] 1.012 (1.001-1.035) Urine Protein Negative (Negative) Urine Ketones Negative (Negative) Urine Blood Negative /uL (Negative) Urine Nitrite Negative (Negative) Urine Bilirubin Negative (Negative) Urine Urobilinogen Normal mg/dL (Negative) Urine Leukocyte Esterase Negative /uL (Negative) Urine RBC 2 /hpf (0 - 4) Urine WBC 1 /hpf (0 - 5) Urine Squamous Epithelial Cells Mod /hpf (<5) Urine Bacteria None seen /hpf (None Seen) Urine Glucose Normal mg/dL (Normal) Other Laboratory Tests 06/27/24 05:24 Brief Hx & Hospital Course: 83-year-old female with a history of hypertension cholesterol TIA DJD came in complaining of bilateral hip pain. CT hip was negative on both sides. Patient is found walking on the floor. She wants to go home. Discharged home Consults/Reason for consult None Operations or Procedures CT left hip CT right hip Condition at Discharge: Fair Final Diagnosis/Problems List Bilateral hip pain, CT left hip negative CT right hip negative Hypertension Hypercholesterolemia History of TIA Discharge Disposition: Home Discharge Instruct/Medications Diet: Cardiac 2g Na,low cholest Activity: Light activity Follow Up/Referral: Follow up with your primary Dr Pathak all previous home medications Medications: None 35 (Time Taken For discharge summary 35 minutes) Discharge Statement: "Patient was advised to return to the ER or call 911 if any headaches, dizziness, shortness of breath, chest pain, abdominal pain, bleeding, fevers, or worsening of medical condition. Patient was counseled about treatment plan, medications, possible side effects, patientverbalized understanding. All questions were answered to the best of my ability. This discharge took greater then 30 minutes in planning, reviewing documentation, counseling the patient, and discussing with other team members." ASSESSMENT ASSESSMENT Hospital Course Uneventful Assessment Bilateral hip pain, CT left hip negative CT right hip negative Hypertension Hypercholesterolemia History of TIA Date of Service: Jun 27, 2024 Billing Provider: JUNG WARNER MD Common Visit Codes: 80689-YPQ/OBS DISCH DAY >30min JUNG WARNER MD Jun 27, 2024 11:57
[2024-06-27 12:04] VITALS: BP 127/46; PULSE 76; RESP 18; TEMP 98.2; O2SAT 96
== END 2024-06-27 13:00 | disposition home or self-care (01) | DRG 554 ==
LOC: ER 08:26 → TELE 12:34 → TELE-WESTW 21:11
PROVIDERS: ADMIT Nurse Practitioner Family; ATTEND Family Medicine
DX: M16.0 Bilateral primary osteoarthritis of hip (principal); E87.1 Hypo-osmolality and hyponatremia; I10 Essential (primary) hypertension; M79.7 Fibromyalgia; E78.00 Pure hypercholesterolemia, unspecified; I16.0 Hypertensive urgency; Z86.73 Personal history of transient ischemic attack (TIA), and cerebral infarction without residual deficits; Z90.710 Acquired absence of both cervix and uterus; Z79.899 Other long term (current) drug therapy
CPT/HCPCS: 36415; 73700; 80048; 80053; 81001; 85025; 99291; G0378; J2405